=== PATIENT | male | born 1960 ===

== ENCOUNTER → 2016-09-19 | Outpatient (CLI) | payer BC | END | disposition home or self-care (01) | LOC: SPEC 16:47 | PROVIDERS: ATTEND Podiatrist Foot & Ankle Surgery | DX: L97.511 Non-pressure chronic ulcer of other part of right foot limited to breakdown of skin (principal) | CPT/HCPCS: 87071; 87075; 87205 ==

== ENCOUNTER → 2016-10-31 | Outpatient (CLI) | payer BC ==
--- NOTE | 2016-10-31 15:48 | KCIC ---
Examination: MRI of the right forefoot without contrast HISTORY: History of hallux valgus, nonhealing wound first digit. COMPARISON: None available Technique: Multiplanar, multisequence MR imaging of the right forefoot were performed without contrast. FINDINGS: There is a skin ulcer identified in the medial aspect of the great toe extending into the soft tissue. There is no T1 signal extending to the level of the distal phalanx of the great toe. However the there is no cortical disruption identified. On the STIR images, there is mild increased STIR signal within the distal phalanx of the great toe. The alignment of the metatarsophalangeal joints, interphalangeal grossly appears unremarkable. Old fracture of the distal portion of the proximal phalanx of the second digit. On the T2-weighted images there is increased T2 signal in the soft tissue do not visualized on this study measures likely due to shading artifact Partially visualized moderate degenerative changes identified in the tarsometatarsal joints IMPRESSION: 1. Ulcer medial aspect of the great toe without cortical disruption to suggest osteomyelitis however there is increased signal within the distal phalanx of the great toe likely bone marrow reactive changes. Correlate clinically. If symptoms persist triphase bone scan can be considered. 2.Old fracture of the distal portion of the proximal phalanx of the second digit. Electronically signed by: Gerald Brewer MD (10/31/2016 3:45 PM)
== END | disposition home or self-care (01) ==
LOC: KCIC MRI 13:42
PROVIDERS: ATTEND Podiatrist Foot & Ankle Surgery
DX: L97.511 Non-pressure chronic ulcer of other part of right foot limited to breakdown of skin (principal)
CPT/HCPCS: 73718

== ENCOUNTER → 2016-10-31 | Outpatient (CLI) | payer BC | LOC: SPEC 17:03 | PROVIDERS: ATTEND Podiatrist Foot & Ankle Surgery | DX: L97.511 Non-pressure chronic ulcer of other part of right foot limited to breakdown of skin (principal) | CPT/HCPCS: 87071; 87075; 87205 ==